=== PATIENT | female | born 1955 | race Caucasian/White ===

== ENCOUNTER 2018-06-10 08:50 | Day surgery (SDC) | payer OTHER, SELFPAY ==
--- NOTE | 2018-06-10 | PATH_ITS ---
[facility] Accession Number: [id number] . 01 Material submitted: . PART A: RANDOM BIOPSIES PART B: ASCENDING COLON POLYPS . 01 Clinical history: . A: RANDOM BIOPSIES FOR MICROSCOPIC COLITIS . 02 Diagnosis: A. Colon, Random Biopsies: Colonic mucosa with no diagnostic abnormality. Negative for active, chronic and microscopic colitis. Negative for dysplasia and malignancy. . B. Ascending Colon, Polyps, Biopsies: Sessile serrated adenoma in two of multiple fragments. MRV/06/11/2018 . 02 Electronically signed: . Lizeth Mcintyre MD, Pathologist NPI- [id number] . 01 Gross description: . Received two formalin-filled containers both labeled with the patient's name. . A. In a container labeled random are multiple 0.1 to 0.3 cm portions of tissue. Filtered, wrapped and entirely submitted in cassette A. B. In a container labeled ascending colon polyps are multiple 0.1 to 0.4 cm portions of tissue. Filtered, wrapped and entirely submitted in cassette B. ([facility]:[id number]) /[facility] . 02 Pathologist provided ICD-10: D12.2 . 02 CPT . 830501, 787604 Specimen Comment: A duplicate report has been generated due to demographic updates. Performed at: 01 [facility] [address], [place], [place] [id number] MD Nasim Decker MD Phone: [phone] Performed at: 02 [facility] [address] [place], [place] [id number] MD Masood Hinojosa MD Phone: [phone]
--- NOTE | 2018-06-10 08:18 | P.HP_ITS ---
History of Present Illness Date Patient Seen: 06/10/18 Chief complaint: [id number] Narrative: 62-year-old female who was seen in our office on 02/24/2018 for changes in bowel habits and history of colon polyps. Please refer to that note for further details. The patient is here today for colonoscopy to assess for microscopic colitis and for polyp surveillance; her last colonoscopy was performed 8 years ago Meds Home Medications Medication Instructions Recorded Confirmed Type CA PANTOTHENATE/FOLIC ACID/VIT 1 tab PO QDAY #0 05/22/11 History (MULTIVITAMIN) ASCORBIC ACID (VITAMIN C) 500 mg PO #0 01/07/12 History Calcium Carbonate/Vitamin D 1 cap PO #0 01/07/12 History (#CALCIUM) alendronate [Fosamax] 70 mg PO Q7D@0730 #0 01/07/17 History Allergies Allergy/AdvReac Type Severity Reaction Status Date / Time No Known Drug Allergies Allergy Verified 06/10/18 09:12 Review of Systems Review of Systems All systems reviewed & are unremarkable except as noted in HPI and below Exam Vital Signs (past 8 hours): Insert Narrative Exam Narrative: General: Patient is well developed, not in apparent distress Cardiovascular: Regular rate and rhythm, no murmurs, rubs, or gallops; no evidence of edema; no palpable abdominal aortic aneurysm Gastrointestinal: Normoactive bowel sounds, soft, nontender, nondistended, no rebound tenderness, no hepatosplenomegaly, no evidence of hernia Assessment & Plan Plan: Assessment/Plan Narrative: 62-year-old female with history of colon polyps and changes in bowel habit who is here for colonoscopy to rule out microscopic colitis and for polyp surveillance Regarding the procedure(s), the risks and potential complications, benefits, and alternatives (including not doing the procedure) were discussed with the patient. The risks include but are not limited to bleeding, splenic injury, infection, perforation which may require surgical intervention, missed lesions, and adverse reactions to sedative medicines. After a question and answer period , the patient agreed to proceed with the procedure(s) and gives informed consent.
[2018-06-10 09:14] VITALS: BP 118/73; PULSE 81; RESP 16; TEMP 36.6; O2SAT 100; BMI 21.9
[2018-06-10] MEDS: SODIUM CHLORIDE 0.9% 1,000 ML 70 ML IV (09:29)
[2018-06-10] MEDS: MIDAZOLAM 5 MG/5 ML VIAL IV (10:16)
[2018-06-10] MEDS: fentaNYL 250 MCG/5 ML INJ IV (10:16)
--- NOTE | 2018-06-10 10:16 | PM.OP.ENDO ---
Operative Date/Time/Diagnoses Date of procedure: 06/10/18 Procedure Notes Procedure in detail: Surgeon: Alton Rogers MD Procedure: Colonoscopy with polypectomy and random biopsies Preoperative diagnosis: Colon polyp surveillance, Change in bowel habits Postoperative diagnosis: Colon polyp status post polypectomy, grade 2 internal hemorrhoids Medications: Conscious sedation using 4 mg IV of Midazolam and 100 mcg IV of Fentanyl Preanesthesia Assessment An H and P was performed/updated and the Px?s ASA class is 2. The procedure was discussed in detail with the patient. The potential risks and complications including infection, bleeding, missed lesions, perforation, need for surgery in case of perforation, prolonged hospital stay, and were explained. A brief question and answer period was allotted and once all questions were answered, informed consent was obtained. The patient was brought back to the procedure room and placed on standard monitoring. The patient?s vital signs were monitored continuously throughout the entire procedure. Prior to starting, a timeout was performed to confirm the patient?s identity, allergies, medications, and procedure. Procedure in detail The patient was placed in left lateral decubitus position and once adequate sedation was obtained a LAMONT was performed. The digital rectal examination did not reveal any palpable lesions. The tip of the colonoscope was placed in the anal canal and advanced without difficulty all the way to the cecum which was identified by the appendiceal orifice and the ileocecal valve. The terminal ileum was intubated to distance of 5 cm from the ileocecal valve. The mucosa appeared normal. The colonoscope was then brought back to cecum and careful examination of all granados of the colon was performed with irrigation of any residual stool. In the ascending colon, there was note of 3 sessile polyps measuring 7-10 mm and these were removed by means of hot snare with minimal bleeding. Resection and retrieval were complete. The colonic mucosa appeared normal throughout the entire colon and random colon biopsies were obtained to rule out microscopic colitis. Retroflexion was performed in the rectum which revealed grade 2 internal hemorrhoids The patient tolerated the procedure well and will be brought back to the recovery area to be discharged once criteria are met. The prep was judged to be good/excellent and adequate to identify polyps less than 5 mm. The withdrawal time was 14 min. The total physician intraservice time was 20 min. Complications There were no complications and estimated blood loss was minimal. Recommendations: Resume previous diet Continue outPx medications Follow up pathology results Repeat colonoscopy in 3 years Office follow up with Dr. Marc if with persistent symptoms An emergency contact number was given to the patient for any complications related to the procedure
[2018-06-10 10:20] VITALS: BP 108/63; PULSE 70; RESP 12; TEMP 36.3; O2SAT 100
--- NOTE | 2018-06-10 10:20 | PM.DS.1 ---
History of Present Illness Chief complaint: [id number] Narrative: 62-year-old female who was seen in our office on 02/24/2018 for changes in bowel habits and history of colon polyps. Please refer to that note for further details. The patient is here today for colonoscopy to assess for microscopic colitis and for polyp surveillance; her last colonoscopy was performed 8 years ago Discharge Providers Primary care physician: Jose Hamilton MD Discharge provider: Alton Rogers MD Discharge Date: 06/10/18 Exam Vital Signs (past 8 hours): - 06/10/18 09:14 Temperature 97.8 F Pulse Rate 81 Respiratory Rate 16 Blood Pressure 118/73 Pulse Oximetry 100 Oxygen Delivery Method Room Air Narrative Exam Narrative: General: Patient is well developed, not in apparent distress Cardiovascular: Regular rate and rhythm, no murmurs, rubs, or gallops; no evidence of edema; no palpable abdominal aortic aneurysm Gastrointestinal: Normoactive bowel sounds, soft, nontender, nondistended, no rebound tenderness, no hepatosplenomegaly, no evidence of hernia Discharge Plan Discharge Plan Patient Disposition: Home Discharge Med Rec/Prescriptions Prescriptions: Continue CA PANTOTHENATE/FOLIC ACID/VIT (MULTIVITAMIN) 1 tab PO QDAY Qty: 0 RF: 0 ASCORBIC ACID (VITAMIN C) 500 mg PO Qty: 0 RF: 0 Calcium Carbonate/Vitamin D (#CALCIUM) 1 cap PO Qty: 0 RF: 0 alendronate [Fosamax] 70 MG tablet 70 mg PO Q7D@0730 Qty: 0 RF: 0 Discharge Orders: Discharge (Order); Ordered 06/10/18 Ordered By: Alton Rogers Provider Discharge Instructions Diet: Diet as Tolerated Visit Report/Discharge Packet Stand Alone Forms: Surgery Discharge Discharge Data Primary Care Provider: Jose Hamilton V Attending Provider: Alton Rogers
[2018-06-10 10:25] VITALS: BP 109/62; PULSE 70; RESP 12; O2SAT 100
[2018-06-10 10:29] VITALS: BP 102/64; PULSE 75; RESP 11; O2SAT 100
[2018-06-10 10:40] VITALS: BP 117/74; PULSE 67; RESP 12; TEMP 36.3; O2SAT 100
[2018-06-10 11:10] VITALS: BP 107/65; PULSE 68; RESP 16; TEMP 36.1; O2SAT 99
== END 2018-06-10 11:36 | disposition home or self-care (01) ==
PROVIDERS: PCP Internal Medicine; Visit Provider Internal Medicine Gastroenterology
PROC: 0DJD8ZZ Inspection of Lower Intestinal Tract, Via Natural or Artificial Opening Endoscopic (ICD-10-PCS; CPT 45378; principal; 2018-06-10 10:30)
DX: R19.4 Change in bowel habit (principal); Z86.010 Personal history of colon polyps; K64.1 Second degree hemorrhoids; D12.2 Benign neoplasm of ascending colon
CPT/HCPCS: 45385; 45380; J2250; J3010

== ENCOUNTER → 2020-01-22 08:47 | Outpatient (CLI) | payer OTHER, SELFPAY ==
--- NOTE | 2020-01-22 | DI.MG.S_ITS ---
BILATERAL DIGITAL SCREENING MAMMOGRAM 3D/2D WITH CAD: 01/22/2020 CLINICAL: Routine screening. Comparison is made to exams dated: 11/21/2016 mammogram and 01/21/2012 mammogram - [facility]. The tissue of both breasts is heterogeneously dense. This may lower the sensitivity of mammography. Current study was also evaluated with a Computer Aided Detection (CAD) system. No significant masses, calcifications, or other findings are seen in either breast. There has been no significant interval change. IMPRESSION: NEGATIVE There is no mammographic evidence of malignancy. A 1 year screening mammogram is recommended. This exam was interpreted at Station ID: [id number]. NOTE: For mammograms, a report in lay terms will be sent to the patient. Approximately 15% of breast malignancies will not be visualized mammographically. In the management of a palpable breast mass, a negative mammogram must not discourage biopsy of a clinically suspicious lesion. Electronically Signed By: Lance tao/preston:01/24/2020 07:21:20 letter sent: Normal Exam ACR BI-RADS Category 1: Negative 3341F
== END ==
PROVIDERS: PCP Internal Medicine; Referring Provider Internal Medicine; Visit Provider Internal Medicine
DX: Z12.31 Encounter for screening mammogram for malignant neoplasm of breast (principal)
CPT/HCPCS: 77063; 77067

== ENCOUNTER → 2020-01-28 08:28 | Outpatient (CLI) | payer OTHER, SELFPAY ==
[2020-01-28 08:51] LABS: Add Manual Diff / Slide Review NO; Basophils Absolute Auto 0 /uL (0-100); Basophils Percent Auto 0.2 % (0-2); Eosinophils Absolute Auto 0 /uL (0-450); Hematocrit 40.9 % (36-46); Hemoglobin 14.2 g/dL (12.0-16.0); Lymphocytes Absolute Auto 1300 /uL (1100-4500); Lymphocytes Percent Auto 25.6 % (25-40); Mean Corpuscular HGB Conc 34.8 % (30-36); Mean Corpuscular Volume 97.9 fL (80-100); Monocytes Absolute Auto 400 /uL (0-900); Monocytes Percent Auto 8.1 % (3-14); Neutrophils Absolute Auto 3400 /uL (1500-7000); Neutrophils Percent Auto 66.1 % (50-75); Platelet Count 134 X10^3/uL (150-400); Red Blood Cell Count 4.17 X10^6/uL (4.0-5.2); Red Cell Distribution Width 12.8 % (11.6-14.8); White Blood Cell Count 5.2 X10^3/uL (4.5-11.0)
[2020-01-28 09:09] LABS: Alanine Aminotransferase 24 IU/L (<35); Albumin 4.2 g/dL (3.5-5.0); Albumin Globulin Ratio 1.2 (1.0-2.8); Alkaline Phosphatase 71 U/L (38-126); Aspartate Aminotransferase 28 IU/L (14-36); BUN Creatinine Ratio 22.4 (6-22); Bilirubin Total 0.6 mg/dL (0.2-1.3); Blood Urea Nitrogen 13 mg/dL (7-17); Calcium 9.1 mg/dL (8.4-10.2); Carbon Dioxide 29 mmol/L (22-32); Chloride 106 mmol/L (98-107); Cholesterol 193 mg/dL (140-199); Estimated Glomerular Filt Rate > 60.0 mL/min (>60); Globulin 3.4 g/dL (1.7-4.1); Glucose 111 mg/dL (80-110); HDL Cholesterol 45 mg/dL (40-60); HEMOLYSIS < 15 (0-50); LDL Cholesterol Calculated 126 mg/dL (<100); Potassium 4.3 mmol/L (3.4-5.1); Sodium 140 mmol/L (137-145); Total Protein 7.6 g/dL (6.3-8.2); Triglycerides 111 mg/dL (35-150)
[2020-01-28 09:51] LABS: TSH w/ Reflex to FT4 1.12 uIU/mL (0.47-4.68)
== END ==
PROVIDERS: PCP Internal Medicine; Referring Provider Internal Medicine; Visit Provider Internal Medicine
DX: Z13.9 Encounter for screening, unspecified (principal)
CPT/HCPCS: 36415; 80053; 80061; 84443; 85025

== ENCOUNTER → 2020-03-14 10:19 | Outpatient (CLI) | payer OTHER, SELFPAY ==
--- NOTE | 2020-03-14 | DI.RAD.S_ITS ---
PROCEDURE: XR DEXA AXIAL SKELETON INDICATIONS: AGE RELATED OSTEOPOROSIS COMPARISON: None. FINDINGS: This blank DEXA report has been sent in error by the PACS system. The correct and complete report will be forthcoming in 1-2 days. Thank you for your patience and understanding. Dictated by: Monserrat Thurman MD, PhD on 03/14/2020 at 13:32 Approved by: Monserrat Thurman MD, PhD on 03/14/2020 at 13:32
== END ==
PROVIDERS: PCP Internal Medicine; Referring Provider Internal Medicine; Visit Provider Internal Medicine
DX: M85.88 Other specified disorders of bone density and structure, other site (principal); Z78.0 Asymptomatic menopausal state; Z82.62 Family history of osteoporosis
CPT/HCPCS: 77080

== ENCOUNTER → 2021-04-27 17:50 | Outpatient (CLI) | payer OTHER, SELFPAY ==
[2021-04-27 18:48] LABS: Influenza A - CEPHEID Flu A NEGATIVE (NEGATIVE); Influenza B - CEPHEID Flu B NEGATIVE (NEGATIVE)
[2021-04-27 18:54] LABS: COVID19 -Nasal RAPID Negative (Negative)
== END ==
PROVIDERS: PCP Internal Medicine; Visit Provider Nurse Practitioner
DX: Z20.822 Contact with and (suspected) exposure to COVID-19 (principal); R68.89 Other general symptoms and signs
CPT/HCPCS: 87502; 87635

== ENCOUNTER 2022-03-20 21:05 | Emergency (ER) | payer OTHER, SELFPAY ==
[2022-03-20 21:30] VITALS: BP 119/74; PULSE 73; RESP 14; TEMP 36.6; O2SAT 96; BMI 24.5
== END 2022-03-20 21:55 | disposition left against medical advice (07) ==
PROVIDERS: Emergency Provider Emergency Medicine; PCP Internal Medicine
CPT/HCPCS: 99281

== ENCOUNTER 2023-08-14 08:51 | Day surgery (SDC) | payer OTHER, SELFPAY ==
--- NOTE | 2023-08-14 | PATH_ITS ---
[facility] Accession Number: [id number] No. of containers..01 Tissue . 01 Material submitted: . colon - TRANSVERSE POLYPS . 01 Diagnosis: Transverse Colon Polyps, Biopsy: Hyperplastic polyp. Additional colonic mucosa with benign lymphoid aggregates. [facility] 08/20/2023 1531 Local . 01 Electronically signed: . Nevaeh Massey MD, Pathologist NPI- [id number] . 01 Gross description: . TRANSVERSE POLYPS: Received in formalin is multiple fragment(s) of bianchi, soft tissue measuring 2.0 x 0.5 x 0.1 cm in aggregate submitted entirely in 1 cassette(s) /AAY 08/15/2023 0436 Local . 01 Pathologist provided ICD-10: Z12.11, D12.3, K63.89 . 01 CPT . 104790 Specimen Comment: A courtesy copy of this report has been sent to [phone] Performed at: 01 [facility] [address] [place] [address] [address] [facility], [place], [place] [id number] MD Nasim Decker MD Phone: [phone]
[2023-08-14] MEDS: LACTATED RINGERS 1,000 ML 100 ML IV (09:12)
[2023-08-14 09:24] VITALS: BP 127/70; PULSE 80; RESP 16; TEMP 36.3; O2SAT 100; BMI 22.6
--- NOTE | 2023-08-14 09:40 | PM.HP.1 ---
History of Present Illness History of Present Illness Date Patient Seen: 08/14/23 Time Patient Seen: 09:40 Chief complaint: Family history of colon cancer Narrative: Yusra Meyer is a 68-year-old woman who has had polyps removed in the past. Her last colonoscopy was with Dr. Rogers in 2018. She also has a son who has been diagnosed with colon cancer recently. [facility] Social History household members: none Smoking Status: Never smoker alcohol intake: current Meds Home Medications and Allergies Home Medications Medication Instructions Recorded Confirmed Type CA PANTOTHENATE/FOLIC ACID/VIT 1 tab PO QDAY ##0 05/22/11 08/14/23 History (MULTIVITAMIN) ASCORBIC ACID (VITAMIN C) 500 mg PO DAILY ##0 01/07/12 08/14/23 History Calcium Carbonate/Vitamin D 1 cap PO DAILY ##0 01/07/12 08/14/23 History (#CALCIUM) clobetasol 0.05 % topical ointment 1 applic topical BID 08/14/23 08/14/23 History Allergies Allergy/AdvReac Type Severity Reaction Status Date / Time No Known Drug Allergies Allergy Verified 08/14/23 08:57 Exam Vital Signs (past 8 hours): - 08/14/23 09:24 Temperature 97.3 F L Pulse Rate 80 Respiratory Rate 16 Blood Pressure 127/70 Pulse Oximetry 100 Oxygen Delivery Method Room Air Oxygen Delivery Method Room Air Const General: healthy appearing and No acute distress Resp Effort & Inspection: normal respiratory effort Assessment & Plan Assessment and plan (1) Family history of colon cancer: Status: Acute (2) Personal history of colonic polyps: Status: Acute Plan Yusra is a 68-year-old woman who has a personal history of colon polyps and a family history of colon cancer. We reviewed the risks and benefits of colonoscopy and she would like to proceed
--- NOTE | 2023-08-14 11:07 | PM.OP.COLON ---
Operative Date/Time/Diagnoses Date of procedure: 08/14/23 Time of procedure: 11:07 Pre-op diagnosis: Family history of colon cancer Post-op diagnosis: same Procedure & Clinicians Study performed: Colonoscopy Same procedure as scheduled: Yes Surgeon: Josh Negrete Procedure Notes Procedure in detail: Surgeon: Josh Negrete MD Anesthesia: To Oakes D.O. Procedure: The patient was brought to the endoscopy suite, placed in left lateral decubitus position. The patient was connected to monitoring devices. A time-out was performed. Sedation was administered. Once the patient was adequately sedated, a digital rectal exam was performed and was normal. The scope was then inserted and advanced to the cecum where the appendiceal orifice was identified and photographed. The scope was then slowly withdrawn over greater than 6 minutes. The mucosa was thoroughly inspected. There were 2 polyps in the transverse colon, 1 about 5 mm and 1 about 3 mm and both removed with a cold snare and sent together. No other abnormalities were seen. The scope was retroflexed in the rectum. No abnormalities were seen in the rectum. The scope was straightened and removed. The patient was awakened and brought to recovery. Scope withdrawal time: 11 minutes Sedation time: 16 minutes EBL: 2 mL Findings: 2 small polyps in the transverse colon Post-procedure Disposition: PACU
[2023-08-14 11:09] VITALS: BP 104/67; PULSE 64; RESP 16; TEMP 36; O2SAT 98
[2023-08-14 11:14] VITALS: BP 107/62; PULSE 62; RESP 15; O2SAT 99
[2023-08-14 11:19] VITALS: BP 113/68; PULSE 64; RESP 16; TEMP 36.2; O2SAT 98
== END 2023-08-14 11:20 | disposition home or self-care (01) ==
PROVIDERS: PCP Student in an Organized Health Care Education/Training Program; Referring Provider Surgery; Visit Provider Surgery
PROC: 0DJD8ZZ Inspection of Lower Intestinal Tract, Via Natural or Artificial Opening Endoscopic (ICD-10-PCS; CPT 45378; principal; 2023-08-14 09:45)
DX: Z12.11 Encounter for screening for malignant neoplasm of colon (principal); K63.5 Polyp of colon
CPT/HCPCS: 45385; J2704

== ENCOUNTER → 2024-02-18 14:21 | Outpatient (CLI) | payer OTHER, SELFPAY ==
--- NOTE | 2024-02-18 14:22 | DI.MG.S_ITS ---
BILATERAL DIGITAL SCREENING MAMMOGRAM 3D/2D WITH CAD: 02/18/2024 CLINICAL: Routine screening. Comparison is made to exams dated: 01/22/2020 mammogram, 11/21/2016 mammogram, and 01/21/2012 mammogram - [facility]. Both breasts are heterogeneously dense, which may obscure small masses (category c / 51-75% glandular tissue). Current study was also evaluated with a Computer Aided Detection (CAD) system. There are benign vascular calcifications in both breasts. No significant masses, calcifications, or other findings are seen in either breast. There has been no significant interval change. IMPRESSION: BENIGN There is no mammographic evidence of malignancy. A 1 year screening mammogram is recommended. Based on the Tyrer Cuzick model (a risk assessment model) the patient's lifetime risk is 7.0% and her 10 year risk is 4.5%. According to the ACR, ACS, and NCCN guidelines, an annual breast MRI exam along with mammogram is recommended if the patient's lifetime risk is 20% or greater. This exam was interpreted at Station ID: [id number]. NOTE: For mammograms, a report in lay terms will be sent to the patient. Approximately 15% of breast malignancies will not be visualized mammographically. In the management of a palpable breast mass, a negative mammogram must not discourage biopsy of a clinically suspicious lesion. Electronically Signed By: Lola mcrae/preston:02/18/2024 15:43:36 letter sent: Normal Exam ACR BI-RADS Category 2: Benign Finding(s) 3342F
--- NOTE | 2024-02-18 14:23 | DI.RAD.S_ITS ---
PROCEDURE: XR DEXA AXIAL SKELETON INDICATIONS: ROUTINE SCREENING / SCREENING FOR OSTEOPOROSIS COMPARISON: [facility], MICHELLE, XR DEXA AXIAL SKELETON, 03/14/2020, 10:42. FINDINGS: Lumbar Spine: Bone mineral density 0.721 g/cm2, T score -3.0. Prior DEXA was performed using dissimilar scan type or analysis method. Left Hip: Bone mineral density 0.753 g/cm2, T score -1.6. Prior DEXA was performed using dissimilar scan type or analysis method. Left Femoral Neck: Bone mineral density 0.634 g/cm2, T score -1.9. Right Hip: Bone mineral density 0.778 g/cm2, T score -1.3. Prior DEXA was performed using dissimilar scan type or analysis method. Right Femoral Neck: Bone mineral density 0.661 g/cm2, T score -1.7. Fracture Risk Calculation (when applicable): FRAX score not reported due to T-score less than -2.5. (T score greater or equal to -1.0 to: NORMAL) (T score from -1.1 to -2.4: OSTEOPENIA) (T score less than or equal to -2.5: OSTEOPOROSIS) IMPRESSION: By WHO criteria, patient has osteoporosis. Follow-up guidelines as follows: Osteoporosis: Consider a repeat DEXA and Vertebral Fracture Assessment (VFA) exam in 2 years or sooner if medically necessary, to reassess this patient's status. Osteopenia: Consider a repeat DEXA in 2-3 years to reassess this patient's status, or if there is a new clinical indication. Normal: Consider a repeat DEXA in 5 years or sooner, or if there is a new clinical indication. All treatment decisions require clinical judgment and consideration of individual patient factors, including patient preferences, comorbidities, previous drug use, risk factors not captured in the FRAX model (e.g., frailty, falls, vitamin D deficiency, increased bone turnover, interval significant decline in bone density ) and possible under- or over-estimation of fracture risk by FRAX. In addition, the NOF Guide recommends that FDA-approved medical therapies be considered in postmenopausal women and men age >= 50 years with a: * Hip or vertebral (clinical or morphometric) fracture * T-score of <=-2.5 at the spine or hip * Ten-year fracture probability by FRAX of >= 3% for hip fracture or >=20% for major osteoporotic fracture. People with diagnosed cases of osteoporosis or at high risk for fracture should have regular bone mineral density tests. For patients eligible for Medicare, routine testing is allowed once every 2 years. The testing frequency can be increased to one year for patients who have rapidly progressing disease, those who are receiving or discontinuing medical therapy to restore bone mass, or have additional risk factors. Approved by: Bharat Hawkins M.D. on 02/18/2024 at 21:03
== END ==
LOC: MAMMO 14:22
PROVIDERS: PCP Student in an Organized Health Care Education/Training Program; Referring Provider Student in an Organized Health Care Education/Training Program; Visit Provider Student in an Organized Health Care Education/Training Program
DX: Z12.31 Encounter for screening mammogram for malignant neoplasm of breast (principal); N95.9 Unspecified menopausal and perimenopausal disorder; R92.333 Mammographic heterogeneous density, bilateral breasts; M81.0 Age-related osteoporosis without current pathological fracture
CPT/HCPCS: 77063; 77067; 77080